=== PATIENT | male | born 1940 | race Caucasian/White ===

== ENCOUNTER 2022-12-25 07:40 | Day surgery (SDC) | payer MEDICARE ==
[2022-12-25] VITALS (7 sets, daily range): BP systolic 135–191; BP diastolic 65–86
[~2022-12-25] VITALS: Ht 170.2 cm; Wt 79.9 kg
[~2022-12-25 07:40] MED LIST: ARGI500T PO; ASPI-611 PO; FAMO10TA41 PO; GOTU435C PO; LEVO500C3 PO; LISI-642 PO; MULT-227 PO; PRAS25CA7 PO; SAW1CAPS PO; TURM1POW
[2022-12-25] MEDS ORDERED: LIDOcaine 1% 30ml preserv. free vial SQ STA (07:53)
[2022-12-25] MEDS ORDERED: BUPR1PAT20 TOP (08:31)
[2022-12-25] MEDS ORDERED: TES100C PO (08:31)
[2022-12-25] MEDS ORDERED: FLUT1BLS4 INFIL (08:35)
[2022-12-25] MEDS ORDERED: ALBU2.5V13 (08:35)
[2022-12-25] MEDS ORDERED: ONDA-104 PO (08:35)
[2022-12-25] MEDS ORDERED: LISI20TA28 PO (08:36)
[2022-12-25] MEDS ORDERED: FURO-150 PO (08:36)
[2022-12-25] MEDS ORDERED: FAMO-128 PO (08:38)
[2022-12-25] MEDS ORDERED: CARV6.2553 PO (08:40)
[2022-12-25] MEDS ORDERED: Ibuprofen PO (08:41)
[2022-12-25] MEDS ORDERED: ACET-2971 PO (08:43)
== END 2022-12-25 10:15 | disposition home or self-care (01) ==
LOC: SSTAY O 07:40
PROVIDERS: ATTEND Radiology Diagnostic Radiology
DX: J90 Pleural effusion, not elsewhere classified (principal); J44.9 Chronic obstructive pulmonary disease, unspecified; I12.9 Hypertensive chronic kidney disease with stage 1 through stage 4 chronic kidney disease, or unspecified chronic kidney disease; N18.9 Chronic kidney disease, unspecified; E78.5 Hyperlipidemia, unspecified; M19.90 Unspecified osteoarthritis, unspecified site; I73.9 Peripheral vascular disease, unspecified; Z79.899 Other long term (current) drug therapy; Z98.890 Other specified postprocedural states; Z87.891 Personal history of nicotine dependence; Z85.118 Personal history of other malignant neoplasm of bronchus and lung; Z82.5 Family history of asthma and other chronic lower respiratory diseases
CPT/HCPCS: 32555; J3490; 49083; A4615

== ENCOUNTER 2023-01-03 08:21 | Day surgery (SDC) | payer MEDICARE ==
[~2023-01-03] VITALS: Ht 167.6 cm; Wt 77.3 kg
[~2023-01-03 08:21] MED LIST changes: +ACET-2971 PO; +ALBU2.5V13 NEB; -ARGI500T PO; -ASPI-611 PO; +BUPR1PAT20 TOP; +CARV6.2553 PO; +FAMO-128 PO; -FAMO10TA41 PO; +FLUT1BLS4 IH; +FURO-150 PO; +Ibuprofen PO; -LISI-642 PO; +LISI20TA28 PO; +ONDA-104 PO; -PRAS25CA7 PO; +TES100C PO
[2023-01-03] MEDS ORDERED: LIDOcaine 1% 30ml preserv. free vial TOP ONE (08:30)
[2023-01-03 08:55] VITALS: BP 141/51
[2023-01-03 09:32] VITALS: BP 131/74
[2023-01-03 09:45] VITALS: BP 118/45
[2023-01-03 10:00] VITALS: BP 88/55
[2023-01-03 10:15] VITALS: BP 107/55
[2023-01-11] MEDS ORDERED: ALBU17AE26 IH (18:21)
[2023-01-11] MEDS ORDERED: PROC10TA10 PO (18:26)
[2023-01-11] MEDS ORDERED: LIDOCAINE PATCH 4% TD (18:29)
[2023-01-11] MEDS ORDERED: DEXT30SU5 PO (18:29)
[2023-01-11] MEDS ORDERED: ACET-2119 PO (18:30)
[2023-01-11] MEDS ORDERED: IBUP-860 PO (18:33)
== END 2023-01-03 10:35 | disposition home or self-care (01) ==
LOC: SSTAY O 08:21
PROVIDERS: ATTEND Radiology Vascular & Interventional Radiology
DX: J90 Pleural effusion, not elsewhere classified (principal); C34.91 Malignant neoplasm of unspecified part of right bronchus or lung; C79.51 Secondary malignant neoplasm of bone; M19.90 Unspecified osteoarthritis, unspecified site; J44.9 Chronic obstructive pulmonary disease, unspecified; N18.9 Chronic kidney disease, unspecified; E78.5 Hyperlipidemia, unspecified; Z98.890 Other specified postprocedural states; Z79.899 Other long term (current) drug therapy
CPT/HCPCS: 32555; C1729